=== PATIENT | male | born 1985 | race Caucasian/White ===

== ENCOUNTER 2023-02-07 02:59 | Day surgery (SDC) | payer OTHER, BC, SELFPAY ==
[2023-02-06 10:43] VITALS: BMI 26.2
--- NOTE | 2023-02-06 10:47 | PC.NURSE ---
Report to the Outpatient Waiting Room, entrance under the green pavilion located off [facility], at time 1030 on date 02/07/23. Planned Procedure Time: 1230. Time changes happen often and if your time is changed the preop area will call you the afternoon before. - You and your visitor will be asked to self-screen and do not enter if you have any COVID symptoms. - A mask is optional within the hospital at this time. Patients may have clear liquids (water, carbonated beverages, clear teas, apple juice) until 3 hours prior to surgery with a maximum of 20 ounces. - No food from midnight until time of surgery Take the following medications with a SIP of water the morning of surgery: N/A DO NOT STOP ANY OF YOUR OTHER PRESCRIPTION MEDICATIONS PRIOR TO SURGERY ?EXCEPT THE FOLLOWING Medications to discontinue per physician: N/A Date to take last dose: N/A Please no make-up, nail portuguese, hairspray, perfume, deodorant, or body powder the day of surgery. No jewelry (including any body piercings) or valuables the day of surgery, leave them at home. Please take a shower or bath the night before, or the morning of, surgery with an antibacterial soap. Wear comfortable, loose fitting clothing. - Jewelry must be removed prior to entering the operating room. Rings and piercings that are not removed may be cut off. - The hospital will not accept responsibility for valuables. - Please leave all valuables, including medications, at home the day of surgery. If you are going home after surgery, a licensed oil transport driver must drive you home. - NO public transportation without another adult if you receive anesthesia. - We recommend that an adult stay with you for 24 hours following discharge. - We also recommend that you do not drive, make important decision, drink alcoholic beverages, or take any drugs that were not prescribed by your health care provider for at least 24 hours after your discharge time. Follow any additional instructions given to you from your surgeon. If you or anyone in your household have experienced Covid symptoms in the past week, please notify your surgeon or the nurse liaison at the phone number below for possible testing. Telephone instructions given to PT - ROBERT HUNT and asked if any additional questions and then verbalized understanding. Patient advised to call surgeon office or pre surgery nurse liaison [phone] if any additional questions.
[2023-02-07 10:50] VITALS: BP 134/85; PULSE 62; RESP 20; TEMP 36.2; O2SAT 100
--- NOTE | 2023-02-07 10:50 | WPDHPUPDATE1 ---
History and Physical Update Update Date/Time: 02/07/23 10:50 History and Physical has been reviewed, including an updated exam of the patient. There are NO changes in the patient's condition. Risks, benefits, and alternatives have been discussed and questions answered. Patient agrees to proceed with procedure.
--- NOTE | 2023-02-07 10:50 | W.PM.PROC2 ---
Procedure Note - Detailed Date of Procedure 02/07/23 Pre-op Diagnosis Skin Lesion Left Lower Lash Line Post-op Diagnosis Same Procedure Performed Excision left lower eyelid lash line lesion 0.5 cm Surgeon Edwin Woods MD Anesthesia General Description of Procedure Preoperatively risks, benefits, alternatives were discussed in extensive detail. I want them to be very realistic about the risks involved as well as expectations. Discussed that pending pathology additional procedures may be necessary. Discussed risks to vision (including but not limited to dry eyes, permanent vision loss) in great detail. Alternative procedure as well as adjuvant procedures. This was a lengthy open-ended conversation discussing realistic expectations of outcome. Answered all of their questions to their satisfaction. Consent obtained. Marked in the preoperative holding. Taken to the operating room placed supine on the operating room table. Anesthesia provided by anesthesiology. Prepped and draped in a standard sterile fashion. After prep irrgated eye with BSS solution. 1% lidocaine and 0.25% Marcaine with epinephrine was used anesthetize locally. Sharply excised the lesion which was sent to pathology. Closed tarsal plate with 5-0 Vicryl followed by 5-0 Nylon for skin with tie over suture to secure suture tails. Irrigated again with BSS. Patient was woken taken the PACU without difficulty. All instrument sponge counts were correct at the end the case. Estimated Blood Loss 5 Drains No Packing No Pathology Yes (Left lower eyelid lash line lesion) Complications No immediate complications Condition Stable Disposition PACU
[2023-02-07] MEDS: LACTATED RINGERS 1,000 ML 30 ML IV CONT (11:00)
--- NOTE | 2023-02-07 11:06 | P.PNAN_ITS ---
Anes - Initial Pre Proc Eval Procedure: Operation Date: 02/07/23 12:30 Proposed Procedures p Excision Lesion Left Lower Lash Line - Edwin Woods MD Date/Time: 02/07/23 11:06 Surgeon: Edwin Woods MD Pre Op Diagnosis: Skin Lesion Left Lower Lash Line Patient Data Age: 37 Gender: M Height: 1.93 m Weight: 97.52 kg Allergies Allergy/AdvReac Type Severity Reaction Status Date / Time No Known Allergies Allergy Unverified 02/07/23 10:51 Home Medications Medication Instructions Recorded Confirmed Type No Home Medications 07/26/21 02/06/23 History Patient hx anesthesia problems: none Family hx anesthesia problems: none Results Review: All pre-operative results and documents have been reviewed as part of the pre- operative evaluation. [facility] Social History Social History Smoking status: Never smoker Alcohol intake: never Substance use: never Substance use type: does not use Living arrangements: with family Spiritual care concerns: No Anes - Eval Final PreProcedure Day of Procedure 02/07/23 11:06 Patient weight: overweight Heart: regular rate and rhythm Lungs: clear to auscultation Airway: Mallampati scale class II Neurological: alert and oriented Last oral intake: >/= 8 hours ASA classification: II Emergent: no Anesthetic plan: proceed Anesthesia type and monitoring: general LMA and standard monitoring Results Review: All pre-operative results and documents have been reviewed as part of the pre- operative evaluation. Informed Consent: The patient's anesthetic plan and its attendant risks and benefits were discussed with the patient/family/POA. Questions were solicited and answers provided to the satisfaction of the patient/family/POA.
[2023-02-07] MEDS: SCOPOLAMINE 1.5 MG PATCH TRANSDERM (11:15)
[2023-02-07] MEDS: ceFAZolin 2 GM/D5W 50 ML 2 GM/50 ML BAG IVPB (11:30)
[2023-02-07] MEDS: BALANCED SALT SOLN OPHTH IRRIG 30 ML BTL EACH EYE (11:50)
[2023-02-07] MEDS: LIDO 1%/EPINEPHRINE 1:100,000 20 ML VIAL INFILTRATE (11:50)
[2023-02-07 12:20] VITALS: BP 123/74; PULSE 58; RESP 16; O2SAT 98
[2023-02-07 12:50] VITALS: BP 122/79; PULSE 56; RESP 16
== END 2023-02-07 13:00 | disposition home or self-care (01) ==
PROVIDERS: Visit Provider Surgery Plastic and Reconstructive Surgery
PROC: (CPT 11440; principal; 2023-02-07 12:30)
DX: D22.122 Melanocytic nevi of left lower eyelid, including canthus (principal)
CPT/HCPCS: 11440; 88305; A9270; J0690; J2250; J3010; J7120